=== PATIENT | male | born 1995 | race Caucasian/White ===

== ENCOUNTER 2017-09-18 15:05 | Emergency (ER) | payer OTHER ==
[~2017-09-18] VITALS: Ht 210.8 cm; Wt 72.2 kg
[2017-09-18] MEDS ORDERED: LIDOCAINE-MPF 2% ,5ML ONE (15:30)
[2017-09-18] MEDS ORDERED: KETOROLAC 30 MG/1 ML ONE (15:57)
[2017-09-18] MEDS ORDERED: DEXAMETHASONE 4 MG/ML, 1ML ONE (15:57)
[2017-09-18] MEDS ORDERED: DIPHENHYDRAMINE 50 MG/ML, 1ML ONE (15:57)
[2017-09-18] MEDS ORDERED: METOCLOPRAMIDE 5 MG/ML, 2ML ONE (15:57)
[2017-09-18] MEDS ORDERED: SODIUM CHLORIDE FLUSH 10ML SYR IVF ONE (16:00)
[2017-09-18] MEDS ORDERED: KETOROLAC 30 MG/1 ML IVPush ONE (16:00)
[2017-09-18] MEDS ORDERED: SODIUM CHLORIDE 0.9% 1,000ML IVBOLUS ONE (16:00)
[2017-09-18] MEDS ORDERED: DIPHENHYDRAMINE 50 MG/ML, 1ML IVPush ONE (16:00)
[2017-09-18] MEDS ORDERED: METOCLOPRAMIDE 5 MG/ML, 2ML IVPush ONE (16:00)
[2017-09-18] MEDS ORDERED: LIDOCAINE 2%, 10ML INFIL ONE (16:00)
[2017-09-18] MEDS ORDERED: DEXAMETHASONE 4 MG/ML, 1ML IVPush ONE (16:00)
[2017-09-18 16:16] VITALS: BP 119/58
== END 2017-09-18 17:07 | disposition home or self-care (01) ==
LOC: ED 16:06
DX: G44.019 Episodic cluster headache, not intractable (principal)
CPT/HCPCS: 64505; 96361; 96374; 96375; 99284; J1100; J1200; J1885; J2765; J7030

== ENCOUNTER 2019-07-23 14:44 | Emergency (ER) | payer OTHER ==
[~2019-07-23] VITALS: Ht 180.3 cm; Wt 76.1 kg
== END 2019-07-23 16:24 ==
LOC: ED 16:15
DX: J06.9 Acute upper respiratory infection, unspecified (principal); H66.92 Otitis media, unspecified, left ear
CPT/HCPCS: 99283